=== PATIENT | female | born 1955 | race Caucasian/White ===

== ENCOUNTER 2019-12-03 21:59 | Emergency (ER) | payer MEDICARE, MEDICAID ==
--- NOTE | 2019-12-03 22:30 | ER Document Report ---
ED Medical Screen (RME) - General Chief Complaint: Facial Injury Stated Complaint: FALL Time Seen by Provider: 12/03/19 22:22 Primary Care Provider: JONY WINTER FNP [Primary Care Provider] - Follow up as needed Notes: Patient is a 64-year-old female who presents to the emergency department with a chief complaint of fall. Patient reports tonight while at [facility] she was stepping off of the curb when she fell. Patient reports falling forward striking the concrete. Patient reports she was wearing eyeglasses at that time and did obtain an abrasion to the top of her nose. Patient denies loss of consciousness. Patient complains of left knee and left ankle pain. Patient reports having abrasions to the left knee. Patient reports her Tdap is up-to-date. TRAVEL OUTSIDE OF THE [place] IN LAST 30 DAYS: No Physical Exam - Vital signs Vitals: Temp Pulse BP Pulse Ox 97.6 F 100 151/74 H 97 12/03/19 22:06 12/03/19 22:06 12/03/19 22:06 12/03/19 22:06 Course - Re-evaluation Re-evalutation: 12/03/19 22:29 Abrasion noted to the nasal area, left knee. Point tenderness to the left lateral malleolus. I have greeted and performed a rapid initial assessment of this patient. A comprehensive ED assessment and evaluation of the patient, analysis of test results and completion of the medical decision making process will be conducted by additional ED providers. - Vital Signs Vital signs: Temp Pulse Resp BP Pulse Ox 97.6 F 100 151/74 H 97 12/03/19 22:06 12/03/19 22:06 12/03/19 22:06 12/03/19 22:06 Doctor's Discharge - Discharge Referrals: JONY WINTER FNP [Primary Care Provider] - Follow up as needed
--- NOTE | 2019-12-03 23:11 | RADIOLOGY REPORT (SQ) ---
EXAM DESCRIPTION: XR FACIAL BONES 1-2 VIEWS COMPLETED DATE/TME: 12/03/2019 22:28 CLINICAL HISTORY: 64 years, Female, abrasion/laceration to nose, fall COMPARISON: None. NUMBER OF VIEWS: Three TECHNIQUE: Frontal and lateral radiographs of the skull were acquired LIMITATIONS: None. FINDINGS: Visualized paranasal sinuses are clear. Mastoid air cells appear grossly clear as well. Orbits are symmetric in size and configuration. The nasal septum is slightly deviated towards the right. No suspicious calvarial abnormalities appreciated. Visualized portions of the mandible appear intact. The distal tip of the nasal bone appears to demonstrate focal lucency, seen on the lateral projection. Overlying soft tissue swelling is evident. IMPRESSION: Suspect essentially nondisplaced fracture involving the distal tip of the nasal bone. Overlying soft tissue swelling. copyright 2010 [employer]- All Rights Reserved
--- NOTE | 2019-12-03 23:14 | RADIOLOGY REPORT (SQ) ---
EXAM DESCRIPTION: XR KNEE 4 OR MORE VIEWS COMPLETED DATE/TME: 12/03/2019 22:28 CLINICAL HISTORY: 64 years, Female, fall, left knee pain COMPARISON: None. NUMBER OF VIEWS: 4 TECHNIQUE: Left LIMITATIONS: None. FINDINGS: No acute displaced fracture. Alignment is anatomic. Age-appropriate osteoarthritis IMPRESSION: Osteoarthritis. copyright 2010 [employer]- All Rights Reserved
--- NOTE | 2019-12-03 23:15 | RADIOLOGY REPORT (SQ) ---
3 VIEWS OF LEFT ANKLE EXAM DATE: 12/03/2019 10:28 PM [employer] HISTORY: fall, left ankle pain. COMPARISON: None. FINDINGS: The ankle mortise is preserved on these nonstress views. No acute fracture is seen. There is diffuse surrounding soft tissue swelling. IMPRESSION: No acute fracture or malalignment.
[2019-12-04] MEDS ORDERED: BACITRACIN ZINC OINTMENT 15 GM TP ONE (01:35)
--- NOTE | 2019-12-04 01:35 | ER Document Report ---
ED General - General Chief Complaint: Facial Injury Stated Complaint: FALL Time Seen by Provider: 12/03/19 22:22 Primary Care Provider: JONY WINTER FNP [Primary Care Provider] - Follow up as needed Mode of Arrival: Ambulatory Information source: Patient TRAVEL OUTSIDE OF THE [place] IN LAST 30 DAYS: No - HPI Onset: Yesterday Onset/Duration: Sudden Quality of pain: Other - mild pain in nose and left knee where abrasions are present. moderate pain and swelling in left ankle Severity: Moderate Pain Level: 1 Associated symptoms: Other - left ankle pain and swelling Exacerbated by: Standing, Walking, Other - weight bearing on left leg Relieved by: Other - not standing or weight bearing Similar symptoms previously: No Recently seen / treated by doctor: No Notes: 64 year old female with no known PMH here for pain over her nose with an abrasion over the bridge, pain of her left knee wiht an abrasion over it, and pain and swelling of her ankle which all started after she tripped fell. The patient was wearing glasses and her glasses seemed to have caused the nasal trauma. The patient can put weight on her left ankle but it pains her to do so. The patient denies LOC, headache, or neck pain. - Related Data Home Medications: omeprazole, wellbutrin, levothyroxine, HCTZ, z-lois, steroids, symbicort inh, ventolin inh Past Medical History - General Information source: Patient - Social History Smoking Status: Never Smoker Frequency of alcohol use: Occasional Drug Abuse: None Lives with: Family Family History: Reviewed & Not Pertinent Patient has suicidal ideation: No Patient has homicidal ideation: No - Immunizations Immunizations up to date: Yes Hx Diphtheria, Pertussis, Tetanus Vaccination: Yes - has had in last 5 years she thinks (she will check with her PCP) Review of Systems - Review of Systems Constitutional: No symptoms reported EENT: Nose pain, Other - abrasion over nose Cardiovascular: No symptoms reported Respiratory: No symptoms reported Gastrointestinal: No symptoms reported Genitourinary: No symptoms reported Female Genitourinary: No symptoms reported Musculoskeletal: Ankle swelling - with pain (left sided), Other - knee pain and abrasion (left sided) Skin: Other - abrasions over nose and left knee Hematologic/Lymphatic: No symptoms reported Neurological/Psychological: No symptoms reported Physical Exam - Vital signs Vitals: Temp Pulse BP Pulse Ox 97.6 F 100 151/74 H 97 12/03/19 22:06 12/03/19 22:06 12/03/19 22:06 12/03/19 22:06 - Notes Notes: GENERAL: Well-appearing, well-nourished and in no acute distress. HEAD: Atraumatic, normocephalic. EYES: Pupils equal round and reactive to light, extraocular movements intact, sclera anicteric, conjunctiva are normal. ENT: Minor superficial abrasion over bridge of nose that does not need repair, Nares patent, oropharynx clear without exudates. Moist mucous membranes. NECK: Normal range of motion, supple without lymphadenopathy or JVD. LUNGS: Breath sounds clear to auscultation bilaterally and equal. No wheezes rales or rhonchi. HEART: Regular rate and rhythm without murmurs, rubs or gallops. ABDOMEN: Soft, nontender, normoactive bowel sounds. No guarding, no rebound. No masses appreciated. EXTREMITIES: Left Ankle is swollen and tender (lateral more then medial aspect). 2+ PT and DP pulse on left. Abrasion over left knee. Normal range of motion in all extremities. No clubbing or cyanosis. NEUROLOGICAL: Cranial nerves II through XII grossly intact. Normal speech, normal gait. PSYCH: Normal mood, normal affect. SKIN: Warm, Dry, normal turgor, no rashes or lesions noted. Abrasion over nose and left knee. Course - Re-evaluation Re-evalutation: 12/04/19 04:17 The patient had a mechanical fall which resulted in a nondisplaced nasal fracture, abrasions over her nose and left knee, and likely a sprained left ankle (painful and swollen). CT of face shows the above mentioned nasal fracture but no other acute injuries. Xrays of her left knee and left ankle show no acute process. Patient told to use antibiotic ointment on he abrasions until they are completely healed. Patient told to weight bear as tolerated on her left ankle. Patient told to follow up with Ortho if her left ankle continues to cause her pain/swelling in the next several weeks to evaluate for ligamentous injury. - Vital Signs Vital signs: Temp Pulse Resp BP Pulse Ox 97.5 F 73 16 125/66 98 12/04/19 02:09 12/04/19 02:09 12/04/19 02:09 12/04/19 02:09 12/04/19 02:09 Discharge - Discharge Clinical Impression: Abrasion Nasal bone fx-closed Qualifiers: Encounter type: initial encounter Qualified Code(s): S02.2XXA - Fracture of nasal bones, initial encounter for closed fracture Ankle sprain Qualifiers: Encounter type: initial encounter Involved ligament of ankle: unspecified ligament Laterality: left Qualified Code(s): S93.402A - Sprain of unspecified ligament of left ankle, initial encounter Condition: Stable Disposition: HOME, SELF-CARE Instructions: Abrasions ([facility]), Fracture of the Nose ([facility]), Sprained Ankle ([facility]) Additional Instructions: Use antibiotic ointment on your abrasions. Follow up with an ENT Doctor if your nose looks uneven to you in the days to come. Ice your ankle to help with swelling. Weight bear as tolerated. Follow up with an Orthopedic Surgeon if your ankle remains swollen and you continue to have pain with weight bearing. Use tylenol and motrin for pain. Referrals: JONY WINTER FNP [Primary Care Provider] - Follow up as needed
[2019-12-04] MEDS ORDERED: BACITRACIN ZINC OINTMENT 15 GM ONE (01:55)
[2019-12-04 02:12] VITALS: BP 125/66
== END 2019-12-04 02:12 | disposition home or self-care (01) ==
LOC: ER 21:59
DX: S02.2XXA Fracture of nasal bones, initial encounter for closed fracture (principal); S93.402A Sprain of unspecified ligament of left ankle, initial encounter; S00.31XA Abrasion of nose, initial encounter; S80.212A Abrasion, left knee, initial encounter; M25.572 Pain in left ankle and joints of left foot; W01.0XXA Fall on same level from slipping, tripping and stumbling without subsequent striking against object, initial encounter
CPT/HCPCS: 99283; 73610; 70150; 73564; 12011; A9270; J3490